=== PATIENT | female | born 1980 | race Caucasian/White ===

== ENCOUNTER 2023-09-28 15:16 | Emergency (ER) | payer SELFPAY ==
[2023-09-28 15:19] VITALS: BP 137/94; PULSE 93; RESP 18; TEMP 36.8; O2SAT 100
--- NOTE | 2023-09-28 15:35 | US_ITS ---
INDICATION: bleeding EXAMINATION: Ultrasound US OB Transvaginal TECHNIQUE: Transvaginal (for optimal evaluation of the adnexa) pelvic ultrasound was performed. Grayscale, spectral waveform, and color flow Doppler evaluation of the adnexa. COMPARISON: None. LMP: [Unknown Beta-hC FINDINGS: UTERUS: 9.3 x 6.8 x 5.4 cm. RIGHT OVARY: 1.9 x 1.6 x 1.4 cm. Normal. LEFT OVARY: Obscured by bowel gas. No adnexal masses. FREE FLUID: None. INTRAUTERINE GESTATIONAL SAC(s) (size/shape): None. YOLK SAC: Not identified POLE: Not identified. HEART MOTION: Not detected. US/Transvaginal w/Preg US IMPRESSION: No intrauterine . is of unknown location and ectopic cannot be excluded. In a hemodynamically stable patient, a follow-up sonographic examination in 7-10 days in combination with serial beta hCG levels is recommended. Electronically Signed: Galen Irby MD at 17:54 EST ,
--- NOTE | 2023-09-28 15:36 | EDS_ITS ---
HPI HPI - Female History of Present Illness Chief Complaint: Vag Bld, Preg Informant: patient Pain Pain: Positive for Pelvic Pain Onset: Yesterday Context: Gradual Onset Timing: Waxes and wanes Quality: Positive for Cramping Location: Suprapubic Current Severity: Mild Maximum Severity: Moderate Bleeding Issue: Positive for Vaginal bleeding and Passing clots Onset: Today Associated Symptoms P: 2 Ab: 2 Narrative Narrative: Patient presents with police secondary to vaginal bleeding and possible miscarriage. Apparently while patient was being arrested today she claimed that she was 12 weeks and had cramping and bleeding. She was concerned she was miscarrying. Patient will be G5, P2, Ab2. She does not know her blood type. She is estimating that she is 12 weeks but does not know when her last menstrual cycle was. She states that she had a positive home test recently and started cramping yesterday. Today she started spotting and then shortly before arrival had a large amount of dark red blood with clots. PFSH PFSH Medical History no medical history no medical history Allergy/AdvReac Type Severity Reaction Status Date / Time codeine Allergy Hives Verified 09/28/23 15:19 tramadol Allergy Hives Verified 09/28/23 15:19 Social History Smoking Status: Current every day smoker tobacco type: cigarettes ROS ROS ED Constitutional Constitutional ED: Denies chills or fever(s) Eyes Eyes: Denies discharge from eye(s) ENT ENT ED: Denies discharge from eye(s), rhinorrhea or sore throat Cardiovascular Cardiovascular: Denies chest pain or palpitations Respiratory/Chest Respiratory/Chest: Denies cough or dyspnea Gastrointestinal Gastrointestinal: Reports abdominal pain; Denies diarrhea, nausea or vomiting Genitourinary Genitourinary ED: Denies dysuria Musculoskeletal Musculoskeletal: Denies back pain or extremity pain Integumentary Denies Abrasions or rash Neurologic Neurologic: Denies headache(s) or weakness Psychiatric Psychiatric: Denies anxiety or depression Allergic/Immunologic Allergic/Immunologic ED: Denies lip swelling or urticaria EXAM Physical Exam Const Vital Signs: 09/28/23 15:19 09/28/23 18:12 Temperature 98.3 F Temperature Source Temporal Pulse Rate 93 67 Respiratory Rate 18 14 Blood Pressure 137/94 H 132/78 H Blood Pressure Mean 108 96 Pulse Ox 100 98 Oxygen Delivery Method Room Air Room Air Positive well nourished and well developed General Appearance ED: well developed HEENT Reports moist mucous membranes Eyes EOMs intact bilaterally Chest Wall inspection of chest normal and palpation of chest normal Resp normal respiratory effort and clear to auscultation bilaterally Cardio regular rate and regular rhythm GI soft to palpation and non-tender Auscultation: hypoactive bowel sounds Neuro oriented x3 and no sensory deficits noted Motor Exam: strength 5/5 throughout Psych Mood & Affect: anxious and tearful Skin no rashes or lesions noted MDM MDM MDM Narrative Medical decision making narrative: Patient has no prior visits in our computer. I did do a bedside ultrasound but did not see anything obvious in regards to intrauterine . I spoke with ultrasound and will get a formal transvaginal ultrasound. Blood work we obtained to evaluate her quant as well as her blood type. History & Record Review Discussion w/independent historian: Patient Lab Data Labs: Laboratory Results - last 24 hr 09/28/23 16:02 HCG, Quant 815 H Radiography Diagnostic Testing: Clinical Impression(s) from Imaging Studies Obstetrics Ultrasound 09/28/23 15:35 IMPRESSION: No intrauterine . is of unknown location and ectopic cannot be excluded. In a hemodynamically stable patient, a follow-up sonographic examination in 7-10 days in combination with serial beta hCG levels is recommended. Electronically Signed: Galen Irby MD at 17:54 EST Reading Location ID and State: [address] [place] [address] Tel , Service support , Treatment and Re-Evaluation Narrative: Blood type is reported is O+. Quant is 815. Pelvic ultrasound reveals no intrauterine . I do not see obvious ectopic either but cannot be excluded. I spoke with Dr. Shane, on-call for no doc [facility]. Patient will have repeat quant drawn on Sunday or Sunday and is to call [facility] office on Sunday for follow-up next week. Patient is comfortable with this plan. Discharge Plan Triage Chief Complaint: Vag Bld, Preg ED Provider: Lorene Rosen Dx/Rx/DC Orders Clinical Impression: Threatened miscarriage Instructions: ED Possible Miscarriage ... Other Ambulatory Orders: hCG Titer Quant., Serum (Routine) Timeframe: 2 Days Facility: [facility] - Location: Laboratory Ordered By: Dr. Lorene Rosen Primary Care Provider: Care Physician,No Primary Referrals: Sheila Shane MD [Med Staff - Active Staff] - 5-7 Days [facility] Doctor,Out of [Non-Staff] - Activity Restrictions/Additional Instructions: As discussed, you need to return to the hospital on Sunday or Sunday to have repeat lab work drawn. The order for this lab work has already been sent. Please call the [facility] office (Dr. Shane) on Sunday and you will be seen in the office next week. Disposition Disposition: Home, Self Care
[2023-09-28 16:52] LABS: hCG Titer Quant., Serum 815 mIU/mL (1-3)
[2023-09-28 18:12] VITALS: BP 132/78; PULSE 67; RESP 14; O2SAT 98
== END 2023-09-28 21:59 | disposition home or self-care (01) ==
PROVIDERS: Emergency Provider Emergency Medicine; Visit Provider Emergency Medicine
DX: O20.0 Threatened abortion (principal); O99.331 Smoking (tobacco) complicating pregnancy, first trimester; F17.210 Nicotine dependence, cigarettes, uncomplicated; Z3A.12 12 weeks gestation of pregnancy
CPT/HCPCS: 76817; 84702; 86900; 86901; 99284